=== PATIENT | female | born 1975 | race Caucasian/White ===

== ENCOUNTER 2018-05-22 07:55 | Outpatient (CLI) | payer BC ==
--- NOTE | 2018-05-22 10:06 | XRAY Report ---
Reason: PAIN IN RIGHT HIP, PAIN IN LEFT HIP Procedure Date: 05/22/2018 Accession Number: [id number] / [id number] Procedure: XR - Hips 2V BILAT CPT Code: FULL RESULT: EXAM: BILATERAL HIP RADIOGRAPHY EXAM DATE: 05/22/2018 08:09 AM. CLINICAL HISTORY: Pain in right hip, pain in left hip. COMPARISON: None. TECHNIQUE: 2 views each. FINDINGS: Bones: Normal. No fractures or bone lesion. Right Hip: Normal. No dislocation. The hip joint space is preserved. Left Hip: Normal. No dislocation. The hip joint space is preserved. Soft Tissues: IUD is noted projecting over the center of the pelvis. Surgical clip is seen in the right hemipelvis. IMPRESSION: Normal bilateral hip radiography. [facility]
== END 2018-05-22 07:56 | disposition home or self-care (01) ==
LOC: DI 07:55
DX: M25.551 Pain in right hip (principal); M25.552 Pain in left hip
CPT/HCPCS: 73521

== ENCOUNTER 2018-06-30 12:39 | Outpatient (CLI) | payer BC ==
--- NOTE | 2018-07-02 09:06 | Ultrasound Report ---
Reason: PELVIC PAIN Procedure Date: 06/30/2018 Accession Number: [id number] / [id number] Procedure: US - Pelvic Complete CPT Code: FULL RESULT: EXAM: PELVIC ULTRASOUND EXAM DATE: 06/30/2018 01:33 PM. CLINICAL HISTORY: Pelvic pain COMPARISON: None. TECHNIQUE: Realtime transabdominal pelvic scan performed to identify the uterus and adnexa and as an overview of other pelvic structures, with static image documentation. Patient requested no transvaginal ultrasound. FINDINGS: Uterus: 8.9 x 4.1 x 5.7 cm, volume 109.3 cc. Anteverted position. Normal overall size and echotexture. IUD seen in the intrauterine cavity. Masses: None. Endometrium: Not well visualized Cervix: Unremarkable. Right Ovary: 2.6 x 2.1 x 2.8 cm, volume 8.0 cc. Normal echotexture and blood flow. Left Ovary: 3.3 x 1.5 x 3.0 cm, volume 7.8 cc. Normal echotexture and blood flow. Free Fluid: None. Other: None. IMPRESSION: Unremarkable transabdominal pelvic ultrasound [facility]
== END 2018-06-30 12:40 | disposition home or self-care (01) ==
LOC: DI 12:39
PROVIDERS: ATTEND Nurse Practitioner Obstetrics & Gynecology
DX: R10.2 Pelvic and perineal pain (principal)
CPT/HCPCS: 76856

== ENCOUNTER 2019-05-06 08:32 | Outpatient (CLI) | payer BC ==
--- NOTE | 2019-05-08 11:29 | Mammography Report ---
Reason: ROUTINE MAMMO Procedure Date: 05/06/2019 Accession Number: [id number] / [id number] Procedure: [facility] - Screening Mammo w/Nestor CPT Code: Final Report FULL RESULT: EXAM: Screening Mammo w/Nestor DATE: 05/06/2019 8:53 AM CLINICAL HISTORY: Screening encounter. TECHNIQUE: (B) - Bilateral CC and MLO views were obtained. COMPARISON: 08/08/2016 PARENCHYMAL PATTERN: (A) - The breast(s) demonstrate(s) scattered fibroglandular densities. FINDINGS: There are no suspicious masses, calcifications, or areas of distortion. IMPRESSION: Negative examination. BI-RADS category 1. RECOMMENDATION: (ANNUAL) - Recommend routine annual screening mammography. BI-RADS CATEGORY: (1) - Negative. STANDARD QUALIFYING STATEMENTS: 1. This examination was not reviewed with the aid of Computer-Aided Detection (CAD). 2. A negative or benign imaging report should not preclude biopsy if clinically suspicious findings are present. 3. Dense breasts may obscure an underlying neoplasm. 4. This examination was reviewed with the aid of 3D breast imaging (tomosynthesis).
== END 2019-05-06 08:33 | disposition home or self-care (01) ==
LOC: DI 08:32
DX: Z12.31 Encounter for screening mammogram for malignant neoplasm of breast (principal)
CPT/HCPCS: 77063; 77067

== ENCOUNTER 2020-07-07 07:05 | Outpatient (CLI) | payer BC ==
[2020-07-07 07:44] LABS: ALBUMIN 4.3 g/dL (3.2-5.5); ALBUMIN/GLOBULIN RATIO 1.7 (1.0-2.2); ALKALINE PHOSPHATASE 54 IU/L (42-121); ALT ALANINE AMINOTRANSFERASE 15 IU/L (10-60); AST ASPARTATE AMINOTRANSFERASE 12 IU/L (10-42); BILIRUBIN,TOTAL 0.7 mg/dL (0.2-1.0); BUN - BLOOD UREA NITROGEN 19 mg/dL (6-20); CALCIUM 9.2 mg/dL (8.5-10.3); CARBON DIOXIDE - CO2 24 mmol/L (21-32); CHLORIDE 104 mmol/L (101-111); CHOL/HDL RATIO 4.9 (<4.4); CHOLESTEROL 233 mg/dL; CREATININE 0.8 mg/dL (0.4-1.0); GFR - MDRD 78 (>89); GLUCOSE 98 mg/dL (70-100); HCT - HEMATOCRIT 38.2 % (37.0-47.0); HDL CHOLESTEROL 48 mg/dL; HGB - HEMOGLOBIN 13.1 g/dL (12.0-16.0); LDL CHOLESTEROL,CALCULATED 172 mg/dL; LDL/HDL RATIO 3.6 (<4.4); MEAN CORPUSCULAR HEMOGLOBIN 31.7 pg (27.0-31.0); MEAN CORPUSCULAR HGB CONC 34.3 g/dL (32.0-36.0); MEAN CORPUSCULAR VOLUME 92.5 fL (81.0-99.0); MEAN PLATELET VOLUME 10.1 fL (7.9-10.8); RED BLOOD COUNT 4.13 10^6/uL (4.20-5.40); RED CELL DISTRIBUTION WIDTH 12.7 % (12.0-15.0); SODIUM 138 mmol/L (135-145); TOTAL PROTEIN 6.8 g/dL (6.7-8.2); TRIGLYCERIDES 64 mg/dL; VLDL CHOLESTEROL 13 mg/dL; WHITE BLOOD COUNT 5.1 x10^3/uL (4.8-10.8)
[2020-07-07 07:57] LABS: THYROID STIMULATING HORMONE 1.48 uIU/mL (0.34-5.60)
[2020-07-07 07:59] LABS: FREE T4 (FREE THYROXINE) 0.97 ng/dL (0.58-1.64)
[2020-07-07 08:00] LABS: FREE T3 3.1 pg/mL (2.5-3.9)
== END 2020-07-07 07:06 | disposition home or self-care (01) ==
LOC: LAB 07:05
PROVIDERS: ATTEND Nurse Practitioner Family
DX: F33.2 Major depressive disorder, recurrent severe without psychotic features (principal)
CPT/HCPCS: 36415; 80053; 80061; 82607; 83721; 83735; 84439; 84443; 84481; 85027